=== PATIENT | male | born 1980 ===

== ENCOUNTER 2022-10-30 14:01 | Outpatient (AMB) | payer OTHER, SELFPAY ==
--- NOTE | 2022-10-30 14:07 | MHC.OFFVIS ---
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 Vegas. He presents to the office today for - vasectomy evaluation Vasectomy evaluation The patient presents for vasectomy consultation.? He is currently He has fathered -?One child The youngest child is - 9 years old His partner is aware and permissive for a vasectomy Current form of control is condoms Current employment is he is a professor at [employer] The vasectomy may be complicated due to a history of no complicating issues. Patient education has been provided via AUA video, via printed information, risks of failure, recovery time, bruising and potential pain syndrome have been stressed Discussion today focused on the presence of vasectomy and the risks, benefits and alternatives that are available. Vasectomy as intended as a permanent form of control. Printed information and literature was provided to the patient. Overall there is a one in 2500 failure rate. This can occur at any time after vasectomy. Risks were discussed highlighting hematoma, spermatocele, epididymal congestion, development of sperm antibodies, and development of chronic pain estimated between 1-5%. The procedure was reviewed in detail. Anatomical diagrams of the male genitalia were used to explain the location of the vas deferens. The vas deferens will be transected, the proximal end will be cauterized, a metal clip would be applied to separate the 2 vas deferens ends. It was explained the procedure will be done in the office and takes approximately 10-15 minutes. Less common problems that arise with vasectomy include hematoma, bleeding, allergic reaction to anesthetic, epididymal infection, epididymal congestion, scrotal discomfort, spermatic leak, spermatic granuloma and the possibility of antisperm antibodies. He understands these risks and wishes to proceed. Consent was signed at the office today. He also understands that it takes 12 weeks for sperm to fully clear the system. He will need to provide a semen sample at 12 weeks and if this is not clear a 2nd sample at 16 weeks. Medical clearance to stop using protection will only be provided if he satisfies published criteria for sperm clearance. [facility] Medical History Thyroid nodule Tumor of parotid gland Review of Systems Const All systems reviewed & are unremarkable except as noted in HPI and below Reports no additional complaints Eyes Reports no additional complaints ENT Reports no additional complaints Card Reports no additional complaints Resp Reports no additional complaints GI Reports no additional complaints Reports no additional complaints Physical Exam Const General: cooperative, healthy appearing, comfortable, no acute distress, well developed, alert and awake Nutritional Appearance: average body habitus Orientation/consciousness: patient oriented x3 Limitations: no limitations HEENT Head: Yes normal to inspection, Yes normocephalic and Yes atraumatic Ears: hearing grossly normal bilaterally Eyes General: appearance normal, both eyes and all related structures Neck Neck: Yes normal visual inspection and Yes trachea midline Chest Chest palpation & inspection: normal inspection of the chest Resp Effort & Inspection: normal respiratory effort and able to speak in complete sentences Cardio Rate: regular rate GI Inspection: Yes normal to inspection General: Yes no CVA tenderness Back/Spine/Pelvis Back: no CVA tenderness Skin General skin exam: no rashes or lesions noted Neuro General: patient oriented x3 Extrem General: Yes normal to inspection Psych Appearance: grossly normal and well kempt Mental Status: mental status grossly normal Speech and movement: Normal speech and movement present and Clear speech present Affect: normal affect Attitude: cooperative Thought process: Normal thought process present Thought content: Normal thought content present Insight: Good insight present (Psych) Judgement: Good judgement present (Psych) Results AMB Urinalysis, Automated UA Leukoctes 0 Gutierrez/uL Last Edit by Shopliment Leila on 10/30/22 14:23 UA Nitrite Last Edit by Shopliment Leila on 10/30/22 14:23 UA Urobilinogen 0.2 mg/dL Last Edit by DenMyWaveray Dee on 10/30/22 14:23 UA Protein 0 mg/dL Last Edit by Shopliment Leila on 10/30/22 14:23 UA pH 6.5 Last Edit by Spinal Restorationray Dee on 10/30/22 14:23 UA Blood 0 Leonel/uL Last Edit by David Dee on 10/30/22 14:23 UA Specific Heron 1.010 Last Edit by Denalex Rosiedna on 10/30/22 14:23 UA Ketone Negative Last Edit by Denjuliusray Arandaedna on 10/30/22 14:23 UA Bilirubin 0 mg/dL Last Edit by Denalex Rosiedna on 10/30/22 14:23 UA Glucose 0 mg/dL Last Edit by David Rosiedna on 10/30/22 14:23 Results Reviewed Results Reviewed: Laboratory Last Values Urine pH (Auto) 6.5 10/30/22 14:13 Specific Heron (Auto) 1.010 10/30/22 14:13 Urine Protein (Auto) 0 mg/dL 10/30/22 14:13 Glucose (UA)(Auto) 0 mg/dL 10/30/22 14:13 Urine Ketones (Auto) Negative 10/30/22 14:13 Urine Blood (Auto) 0 Leonel/uL 10/30/22 14:13 Urine Bilirubin (Auto) 0 mg/dL 10/30/22 14:13 Urine Urobilinogen (Auto) 0.2 mg/dL 10/30/22 14:13 Leukocyte Esterase (Auto) 0 Gutierrez/uL 10/30/22 14:13 Assessment & Plan Assessment & Plan (1) Anxiety about health: Code(s): F41.8 - Other specified anxiety disorders (2) Vasectomy evaluation: Code(s): Z30.09 - Encounter for other general counseling and advice on contraception Plan In office urinalysis results reviewed with the patient today. Discussed at length vasectomy risks versus benefits; as noted above. Prescriptions provided; discussed specific instructions of bringing medications to office and medications are preprocedural. All questions were answered. Patient will call to schedule vasectomy with Dr. Carrasco as discussed. Orders: Orders AMB Urinalysis Automated 10/30/22 Z13.9 - Encounter for screening, unspecified Medications: New diazepam (Valium) take one tab when arrive for procedure 2 mg PO DAILY 2 tabs 0RF anxiety F41.8 - Other specified anxiety disorders acetaminophen-codeine 300-30 mg 1 tab PO Q8H 9 tabs 0RF 3 days F41.8 - Other specified anxiety disorders Patient Instructions: The patient had an opportunity to ask questions regarding the treatment plan. All questions were answered. Physical exam, labs, and imaging were discussed and reviewed in detail. As well as risks, benefits, and discussion of treatment choices. No major barriers to understanding were identified. The patient expressed understanding and agreement with the above treatment plan. The patient was made aware they should contact our office by phone for worsening of their current condition, the appearance of new symptoms, or with any questions or concerns. Compliance is encouraged with any medications and follow up testing that is ordered. It is a privilege to be allowed the opportunity to participate in? your urological care.? Again, if you have any questions or concerns If you have any questions or concerns please do not hesitate to contact me. The office is [phone]. This note is constructed using voice recognition software. While every effort has been made to ensure accuracy automotive upholsterer errors may have been included. Yours sincerely, SUSAN Omer Coding Level of Care Code New Pt Level 4 (61965) Diagnoses Anxiety about health F41.8 Vasectomy evaluation Z30.09
== END 2022-10-30 14:58 | disposition home or self-care (01) ==
PROVIDERS: Visit Provider Nurse Practitioner Family
DX: F41.8 Other specified anxiety disorders (principal); Z30.09 Encounter for other general counseling and advice on contraception
CPT/HCPCS: 99204

== ENCOUNTER → 2022-10-30 14:01 | Outpatient (BNVA) | payer OTHER, SELFPAY | PROVIDERS: Visit Provider Nurse Practitioner Family ==

== ENCOUNTER 2024-02-02 13:45 | Outpatient (AMB) | payer OTHER, SELFPAY ==
--- NOTE | 2024-02-02 13:47 | A.OFFVIS_ITS ---
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 Vegas. He presents to the office today for - vasectomy evaluation Vasectomy evaluation The patient presents for vasectomy consultation.? He is currently He has fathered -?One child The youngest child is - 11 years old His partner is aware and permissive for a vasectomy Current form of control is condoms Current employment is he is a professor at [employer] The vasectomy may be complicated due to a history of no complicating issues. Patient education has been provided via AUA video, via printed information, risks of failure, recovery time, bruising and potential pain syndrome have been stressed Discussion today focused on the presence of vasectomy and the risks, benefits and alternatives that are available. Vasectomy as intended as a permanent form of control. Printed information and literature was provided to the patient. Overall there is a one in 2500 failure rate. This can occur at any time after vasectomy. Risks were discussed highlighting hematoma, spermatocele, epididymal congestion, development of sperm antibodies, and development of chronic pain estimated between 1-5%. The procedure was reviewed in detail. Anatomical diagrams of the male genitalia were used to explain the location of the vas deferens. The vas deferens will be transected, the proximal end will be cauterized, a metal clip would be applied to separate the 2 vas deferens ends. It was explained the procedure will be done in the office and takes approximately 10-15 minutes. Less common problems that arise with vasectomy include hematoma, bleeding, allergic reaction to anesthetic, epididymal infection, epididymal congestion, scrotal discomfort, spermatic leak, spermatic granuloma and the possibility of antisperm antibodies. He understands these risks and wishes to proceed. Consent was signed at the office today. He also understands that it takes 12 weeks for sperm to fully clear the system. He will need to provide a semen sample at 12 weeks and if this is not clear a 2nd sample at 16 weeks. Medical clearance to stop using protection will only be provided if he satisfies published criteria for sperm clearance. [facility] Medical History Thyroid nodule Tumor of parotid gland Review of Systems Const All systems reviewed & are unremarkable except as noted in HPI and below Physical Exam Const General: cooperative, healthy appearing, comfortable, no acute distress, well developed, alert and awake Nutritional Appearance: average body habitus Orientation/consciousness: patient oriented x3 Limitations: no limitations HEENT Head: Yes normal to inspection, Yes normocephalic and Yes atraumatic Ears: hearing grossly normal bilaterally Eyes General: appearance normal, both eyes and all related structures Neck Neck: Yes normal visual inspection and Yes trachea midline Chest Chest palpation & inspection: normal inspection of the chest Resp Effort & Inspection: normal respiratory effort and able to speak in complete sentences Cardio Rate: regular rate GI Inspection: Yes normal to inspection General: Yes no CVA tenderness Back/Spine/Pelvis Back: no CVA tenderness Skin General skin exam: no rashes or lesions noted Neuro General: patient oriented x3 Extrem General: Yes normal to inspection Psych Appearance: grossly normal and well kempt Mental Status: mental status grossly normal Speech and movement: Normal speech and movement present and Clear speech present Affect: normal affect Attitude: cooperative Thought process: Normal thought process present Thought content: Normal thought content present Insight: Fair insight present (Psych) Judgement: Fair judgement present (Psych) Assessment & Plan Assessment & Plan (1) Anxiety about health: Code(s): F41.8 - Other specified anxiety disorders Category: Medical (2) Vasectomy evaluation: Code(s): Z30.09 - Encounter for other general counseling and advice on contraception Category: Medical Plan Discussed at length vasectomy risks versus benefits; as noted above. Prescriptions provided; discussed specific instructions of bringing medications to office and medications are preprocedural. All questions were answered. Consent obtained. Discussed semen analysis in office verses fellows kit. Patient will call to schedule vasectomy with Dr. Carrasco as discussed. Medications: Changed From diazepam (Valium) take one tab when arrive for procedure 2 mg PO DAILY 2 tabs 0RF anxiety F41.8 - Other specified anxiety disorders To diazepam (Valium) Bring to office day of procedure 2 mg PO DAILY 2 tabs 0RF anxiety F41.8 - Other specified anxiety disorders From acetaminophen-codeine 300-30 mg 1 tab PO Q8H 3 days 9 tabs 0RF F41.8 - Other specified anxiety disorders To acetaminophen-codeine 300-30 mg Bring to office day of procedure 1 tab PO Q8H 3 days 9 tabs 0RF F41.8 - Other specified anxiety disorders Patient Instructions: The patient had an opportunity to ask questions regarding the treatment plan. All questions were answered. Physical exam, labs, and imaging were discussed and reviewed in detail. As well as risks, benefits, and discussion of treatment choices. No major barriers to understanding were identified. The patient expressed understanding and agreement with the above treatment plan. The patient was made aware they should contact our office by phone for worsening of their current condition, the appearance of new symptoms, or with any questions or concerns. Compliance is encouraged with any medications and follow up testing that is ordered. It is a privilege to be allowed the opportunity to participate in? your urological care.? Again, if you have any questions or concerns If you have any questions or concerns please do not hesitate to contact me. The office is [phone]. This note is constructed using voice recognition software. While every effort has been made to ensure accuracy manufacturing engineer machining errors may have been included. Yours sincerely, SUSAN Omer Coding Level of Care Code Est Pt Level 4 (21857) Diagnoses Anxiety about health F41.8 Vasectomy evaluation Z30.09 Time Spent (min) 20
== END 2024-02-02 14:21 | disposition home or self-care (01) ==
LOC: HO.HUSH 13:45
PROVIDERS: PCP Family Medicine; Visit Provider Nurse Practitioner Family
DX: F41.8 Other specified anxiety disorders (principal); Z30.09 Encounter for other general counseling and advice on contraception
CPT/HCPCS: 99214

== ENCOUNTER → 2024-02-02 13:45 | Outpatient (BNVA) | payer OTHER, SELFPAY | PROVIDERS: PCP Family Medicine; Visit Provider Nurse Practitioner Family ==